=== PATIENT | male | born 1990 | race African-American/Black ===

== ENCOUNTER 2021-01-28 07:11 | Emergency (ER) | payer SELFPAY ==
[~2021-01-28] VITALS: Ht 193 cm; Wt 193.1 kg
[2021-01-28] MEDS ORDERED: OXYCODONE HCL/ACETAMINOPHEN 5/325MG TABLET PO ONE (08:15)
[2021-01-28] MEDS ORDERED: HYDRALAZINE 20MG/ML VIAL IV ONE (08:30)
[2021-01-28 09:40] LABS: BASOPHILS % 0.9 % (0.0-2.0); EOSINOPHILS % 3.2 % (0.0-5.0); HEMOGLOBIN. 14.4 g/dL (14.0-18.0); LYMPHOCYTES % 16.3 % (20.0-50.0); MEAN PLATELET VOLUME 11.3 fl (7.4-10.4); MONOCYTES % 9.8 % (2.0-8.0); NEUTROPHILS % 69.8 % (40.0-76.0); PLATELET 156 x1000/uL (130-400); RED BLOOD CELL COUNT 5.57 mill/uL (4.7-6.1); RED CELL DISTRIBUTION WIDTH 14.5 % (11.6-14.6)
[2021-01-28 09:44] LABS: CHLORIDE 105 mEq/L (98-107)
[2021-01-28] MEDS ORDERED: HYDR25TA PO (10:04)
[2021-01-28] MEDS ORDERED: TOPUD PO (10:04)
[2021-01-28 11:04] VITALS: BP 186/60
== END 2021-01-28 11:05 | disposition home or self-care (01) ==
LOC: ER 07:11
DX: M25.512 Pain in left shoulder (principal); M54.2 Cervicalgia; I10 Essential (primary) hypertension; Z91.14 Patient's other noncompliance with medication regimen
CPT/HCPCS: 36415; 72040; 73030; 80053; 85025; 93005; 96374; 99285; J0360

== ENCOUNTER 2021-08-27 23:02 | Inpatient (IN) | payer OTHER ==
[~2021-08-27] VITALS: Ht 195.6 cm; Wt 199.6 kg
[~2021-08-27 23:02] MED LIST: HYDR25TA PO; TOPUD PO
[2021-08-28 02:13] LABS: CHLORIDE 102 mEq/L (98-107)
[2021-08-28 02:16] LABS: BASOPHILS % 0.3 % (0.0-2.0); EOSINOPHILS % 0.5 % (0.0-5.0); HEMATOCRIT. 44.8 % (42.0-52.0); HEMOGLOBIN. 14.5 g/dL (14.0-18.0); LYMPHOCYTES % 11.1 % (20.0-50.0); MEAN CORPUSCULAR HEMOGLOBIN 24.7 pg (28.0-32.0); MEAN CORPUSCULAR VOLUME 76.4 fL (80.0-94.0); MEAN PLATELET VOLUME 10.9 fl (7.4-10.4); MONOCYTES % 6.6 % (2.0-8.0); NEUTROPHILS % 81.5 % (40.0-76.0); PLATELET 156 x1000/uL (130-400); RED BLOOD CELL COUNT 5.86 mill/uL (4.7-6.1); RED CELL DISTRIBUTION WIDTH 15.8 % (11.6-14.6)
[2021-08-28] MEDS ORDERED: LABETALOL 5MG/ML SYR 20 MG/4 ML SYRINGE IV ONE (03:15)
[2021-08-28] MEDS ORDERED: MORPHINE SULFATE 4 MG/ML CPJ (NOT FOR IM USE) IV ONE (03:30)
[2021-08-28] MEDS ORDERED: ONDANSETRON HCL 4MG/2ML INJ IV ONE (03:30)
[2021-08-28] MEDS ORDERED: IPRATROPIUM/ALBUTEROL 0.5-3(2.5)MG/3ML NEB HHN PRN (11:45)
[2021-08-28] MEDS ORDERED: DOCUSATE SODIUM 100MG CAPSULE PO PRN (11:45)
[2021-08-28] MEDS ORDERED: HYDRALAZINE 20MG/ML VIAL IV PRN (11:45)
[2021-08-28] MEDS ORDERED: ACETAMINOPHEN 325MG TABLET PO PRN (11:45)
[2021-08-28] MEDS ORDERED: MORPHINE SULFATE 2 MG/ML CPJ (NOT FOR IM USE) IV PRN (11:45)
[2021-08-28] MEDS ORDERED: GUAIFENESIN 200MG/10ML SUGAR FREE UDC PO PRN (11:45)
[2021-08-28] MEDS ORDERED: DIPHENHYDRAMINE 50MG/ML VIAL IV PRN (11:45)
[2021-08-28] MEDS ORDERED: ONDANSETRON HCL 4MG/2ML INJ IV PRN (11:45)
[2021-08-28] MEDS ORDERED: LORAZEPAM 2MG/ML CPJ IV PRN (11:45)
[2021-08-28] MEDS ORDERED: MAGNESIUM/ALUMINUM HYDROXIDE/SIMETHICONE 30ML UDC PO PRN (11:45)
[2021-08-28] MEDS ORDERED: CLONIDINE 0.1MG TABLET PO PRN (11:45)
[2021-08-28] MEDS: SODIUM CHLORIDE 0.9% INJ 3ML FLUSH IVF SCH ×2 (13:35→22:00)
[2021-08-28] MEDS: ENOXAPARIN 40MG/0.4ML SYR SUBCUT SCH ×2 (13:43→21:40)
[2021-08-28] MEDS: HYDROCODONE/ACETAMINOPHEN 5/325MG TABLET PO PRN (13:44)
[2021-08-28 13:58] VITALS: BP 214/130
[2021-08-28 14:36] VITALS: BP 192/100
[2021-08-28 16:00] VITALS: BP 195/111
[2021-08-28] MEDS ORDERED: METOPROLOL SUCCINATE 50MG ER TABLET PO PRN (16:15)
[2021-08-28] MEDS: CLONIDINE 0.3MG TABLET PO PRN (17:21)
[2021-08-28] MEDS: NITROGLYCERIN OINT 1GM/INCH UDPKT TD SCH (17:21)
[2021-08-28] MEDS: AMLODIPINE 5MG TABLET PO SCH ×2 (17:22→21:38)
[2021-08-28 17:41] LABS: CREATINE KINASE MB FRACTION 3.6 ng/mL (0.5-3.6)
[2021-08-28 17:51] LABS: CREATINE KINASE 1069 IU/L (39-308)
[2021-08-28 18:56] VITALS: BP 168/82
[2021-08-28 20:00] VITALS: BP 152/80
[2021-08-28] MEDS: HYDRALAZINE HCL 50MG TABLET PO SCH (21:39)
[2021-08-28] MEDS: METOPROLOL TARTRATE 25MG TABLET PO SCH (21:39)
[2021-08-29] VITALS: BP 141/36
[2021-08-29] MEDS: NITROGLYCERIN OINT 1GM/INCH UDPKT TD SCH ×2 (00:43→06:46)
[2021-08-29 01:02] LABS: CREATINE KINASE 806 IU/L (39-308); CREATINE KINASE MB FRACTION 2.4 ng/mL (0.5-3.6)
[2021-08-29 04:00] VITALS: BP 121/70
[2021-08-29] MEDS: HYDRALAZINE HCL 50MG TABLET PO SCH (06:47)
[2021-08-29] MEDS: SODIUM CHLORIDE 0.9% INJ 3ML FLUSH IVF SCH ×2 (06:47→16:17)
[2021-08-29] MEDS: HYDROCODONE/ACETAMINOPHEN 5/325MG TABLET PO PRN (06:50)
[2021-08-29 07:29] LABS: CHLORIDE 101 mEq/L (98-107)
[2021-08-29 07:30] LABS: BASOPHILS % 0.4 % (0.0-2.0); EOSINOPHILS % 1.6 % (0.0-5.0); HEMATOCRIT. 39.3 % (42.0-52.0); HEMOGLOBIN. 12.8 g/dL (14.0-18.0); LYMPHOCYTES % 16.8 % (20.0-50.0); MEAN CORPUSCULAR VOLUME 76.6 fL (80.0-94.0); MEAN PLATELET VOLUME 11.5 fl (7.4-10.4); MONOCYTES % 10.8 % (2.0-8.0); NEUTROPHILS % 70.4 % (40.0-76.0); PLATELET 142 x1000/uL (130-400); RED BLOOD CELL COUNT 5.14 mill/uL (4.7-6.1); RED CELL DISTRIBUTION WIDTH 15.5 % (11.6-14.6)
[2021-08-29 08:00] VITALS: BP 152/94
[2021-08-29] MEDS: AMLODIPINE 5MG TABLET PO SCH (08:40)
[2021-08-29] MEDS: METOPROLOL TARTRATE 25MG TABLET PO SCH (08:40)
[2021-08-29] MEDS: ENOXAPARIN 40MG/0.4ML SYR SUBCUT SCH (08:41)
[2021-08-29 12:00] VITALS: BP 157/96
[2021-08-29] MEDS ORDERED: HYDRALAZINE HCL 50MG TABLET PO SCH (14:00)
[2021-08-29] MEDS ORDERED: NITROGLYCERIN OINT 1GM/INCH UDPKT TD SCH (14:00)
[2021-08-29 14:19] VITALS: BP 160/118
[2021-08-29 16:00] VITALS: BP 171/120
[2021-08-29] MEDS: CLONIDINE 0.3MG TABLET PO PRN (17:04)
== END 2021-08-29 17:55 | disposition home or self-care (01) | DRG 313 ==
LOC: ER 08-28 00:35 → 8WST 08-28 04:34
PROVIDERS: ADMIT Internal Medicine; ATTEND Internal Medicine
DX: R07.9 Chest pain, unspecified (principal); R65.10 Systemic inflammatory response syndrome (SIRS) of non-infectious origin without acute organ dysfunction; Z68.43 Body mass index [BMI] 50.0-59.9, adult; R68.84 Jaw pain; I10 Essential (primary) hypertension; E66.01 Morbid (severe) obesity due to excess calories; G47.33 Obstructive sleep apnea (adult) (pediatric); I11.0 Hypertensive heart disease with heart failure; I50.9 Heart failure, unspecified; Z82.3 Family history of stroke; Z91.14 Patient's other noncompliance with medication regimen; Z79.1 Long term (current) use of non-steroidal anti-inflammatories (NSAID); Z79.899 Other long term (current) drug therapy
CPT/HCPCS: 36415; 71045; 80053; 82550; 82553; 83880; 84443; 84484; 85025; 93005; 93306; 93970; 99285; J0360; J1650; J2270; J2405; J3490